=== PATIENT | female | born 1935 ===

== ENCOUNTER 2017-04-11 14:32 | Inpatient (IN) | payer MEDICARE, MEDICAID ==
[~2017-04-11] VITALS: Ht 152.4 cm; Wt 67.1 kg
[2017-04-11] MEDS ORDERED: NITROGLYCERIN OINT 1 GM PACKET TP ONE ×2 (14:45→15:08)
[2017-04-11] MEDS ORDERED: ASPIRIN 325 MG TABLET PO ONE (14:45)
[2017-04-11] MEDS ORDERED: Synthroid PO (14:46)
--- NOTE | 2017-04-11 14:51 | NUR ---
PT IS IN ROOM #1B. DR ROSA EVALUATED THE PT.
[2017-04-11 15:06] LABS: BASOPHILS % (AUTO) 0.4 % (0.0-2.0); EOSINOPHILS # (AUTO) 0.1 K/uL (0.0-0.7); EOSINOPHILS % (AUTO) 0.6 % (0.0-7.0); HEMATOCRIT 39.2 % (37-47); HEMOGLOBIN 13.1 G/DL (12.0-16.0); LYMPHOCYTES # (AUTO) 1.2 K/UL (0.8-4.8); LYMPHOCYTES % (AUTO) 12.6 % (20.5-51.5); MEAN CORPUSCULAR HEMOGLOBIN 30.2 UUG (27.0-31.0); MEAN CORPUSCULAR HGB CONC 33 g/dL (32.0-37.0); MEAN CORPUSCULAR VOLUME 90.3 FL (81.0-99.0); MONOCYTES # (AUTO) 0.9 K/UL (0.1-1.30); MONOCYTES % (AUTO) 8.8 % (0.0-11.0); NEUTROPHILS # (AUTO) 7.6 K/UL (1.8-8.9); NEUTROPHILS % (AUTO) 77.6 % (38.5-71.5); PLATELET COUNT (AUTO) 299 K/UL (150-450); RED BLOOD CELL COUNT(AUTO) 4.34 MIL/UL (4.2-5.4); WHITE BLOOD COUNT (AUTO) 9.8 K/UL (4.0-11.2)
[2017-04-11] MEDS ORDERED: ASPIRIN 325 MG TABLET ONE (15:07)
[2017-04-11 15:14] LABS: CARBON DIOXIDE 30 mmol/L (21-32); CHLORIDE 91 mmol/L (98-107); CREATININE 0.8 mg/dL (0.6-1.3); GLUCOSE 119 mg/dL (74-106); POTASSIUM 3.2 mmol/L (3.5-5.1); UREA NITROGEN, BLOOD 11 mg/dL (7-18)
[2017-04-11 15:19] LABS: ALANINE AMINOTRANSFERASE 15 U/L (14-59); ALKALINE PHOSPHATASE 79 U/L (50-136); ASPARTATE AMINOTRANSFERASE 14 U/L (15-37); BILIRUBIN,DIRECT 0.1 mg/dL (0.0-0.2); BILIRUBIN,TOTAL 0.5 mg/dL (0.2-1.0)
[2017-04-11] MEDS ORDERED: ASPI81TA31 PO (15:59)
--- NOTE | 2017-04-11 16:24 | NUR ---
REPORT WAS GIVEN TO MARINE SERVICES TECHNICIAN. PT WAS TRANSFERED TO TELEMETRY ROOM #228.
[2017-04-11 17:05] VITALS: BP 163/77
--- NOTE | 2017-04-11 17:05 | NUR ---
PATIENT ADMITTED INTO UNIT ER AT 1705 WITH ENRICO IN STABLE CONDITION. NO SIGNS OF DISTRESS. PATIENT ABLE TO AMBULATE WITHOUT ASSISTANCE FROM [facility] TO BED. A/OX4, COOPERATIVE. ADMISSION ASSESSMENTS COMPLETED. BED IN LOCKED, LOW POSITION. ID BAND PLACED. PATIENT DOES NOT COMPLAIN OF CHEST PAIN AT THIS TIME. SUPPLEMENTAL OXYGEN NEEDED. PT O2 SATURATION AT 98% RA. SAFETY AND COMFORT PROVIDED TO PATIENT.
[2017-04-11] MEDS ORDERED: MAGNESIUM HYDROXIDE 30 ML LIQUID UDC PO PRN (19:00)
[2017-04-11] MEDS ORDERED: MORPHINE SULFATE 2 MG/1 ML DISP.SYRIN IV PRN (19:00)
[2017-04-11] MEDS ORDERED: ACETAMINOPHEN 325 MG TABLET PO PRN (19:00)
[2017-04-11] MEDS ORDERED: ONDANSETRON 4 MG/2 ML VIAL IV PRN (19:00)
[2017-04-11] MEDS ORDERED: POTASSIUM CHLORIDE 20 MEQ in IV NS 1000 ML 1,000 ML IV PRN (19:00)
[2017-04-11 20:00] VITALS: BP 153/66
[2017-04-11] MEDS: DOCUSATE SODIUM 100 MG CAPSULE PO SCH (21:34)
[2017-04-11] MEDS: METOPROLOL TARTRATE 25 MG TABLET PO SCH (21:35)
[2017-04-12] VITALS: BP 146/72
[2017-04-12 04:00] VITALS: BP 152/76
[2017-04-12] MEDS: PANTOPRAZOLE SODIUM 40 MG TABLET.DR PO SCH (06:30)
[2017-04-12] MEDS: LEVOTHYROXINE SODIUM 50 MCG TABLET PO SCH (06:30)
[2017-04-12 06:48] LABS: BASOPHILS % (AUTO) 0.7 % (0.0-2.0); EOSINOPHILS # (AUTO) 0.1 K/uL (0.0-0.7); EOSINOPHILS % (AUTO) 2.1 % (0.0-7.0); HEMATOCRIT 38.1 % (37-47); HEMOGLOBIN 12.7 G/DL (12.0-16.0); LYMPHOCYTES # (AUTO) 1.3 K/UL (0.8-4.8); LYMPHOCYTES % (AUTO) 19.3 % (20.5-51.5); MEAN CORPUSCULAR HEMOGLOBIN 30.3 UUG (27.0-31.0); MEAN CORPUSCULAR HGB CONC 34 g/dL (32.0-37.0); MEAN CORPUSCULAR VOLUME 90.5 FL (81.0-99.0); MONOCYTES # (AUTO) 0.8 K/UL (0.1-1.30); MONOCYTES % (AUTO) 12.3 % (0.0-11.0); NEUTROPHILS # (AUTO) 4.6 K/UL (1.8-8.9); NEUTROPHILS % (AUTO) 65.6 % (38.5-71.5); PLATELET COUNT (AUTO) 281 K/UL (150-450); RED BLOOD CELL COUNT(AUTO) 4.21 MIL/UL (4.2-5.4); WHITE BLOOD COUNT (AUTO) 6.8 K/UL (4.0-11.2)
[2017-04-12 07:06] LABS: THYROID STIMULATING HORMONE 2.124 mIU/mL (0.358-3.740)
[2017-04-12 07:12] LABS: ALANINE AMINOTRANSFERASE 14 U/L (14-59); ALKALINE PHOSPHATASE 75 U/L (50-136); ASPARTATE AMINOTRANSFERASE 17 U/L (15-37); BILIRUBIN,TOTAL 0.7 mg/dL (0.2-1.0); CARBON DIOXIDE 29 mmol/L (21-32); CHLORIDE 96 mmol/L (98-107); CHOLESTEROL 163 mg/dL (<200); CREATININE 0.7 mg/dL (0.6-1.3); GLUCOSE 101 mg/dL (74-106); HDL CHOLESTEROL 83 mg/dL (40-60); PHOSPHOROUS 3.8 mg/dL (2.5-4.9); POTASSIUM 3.5 mmol/L (3.5-5.1); TOTAL PROTEIN, SERUM 6.9 g/dL (6.4-8.2); TRIGLYCERIDES 44 MG/DL (30-150); UREA NITROGEN, BLOOD 12 mg/dL (7-18)
[2017-04-12] MEDS: ASPIRIN 81 MG TAB.CHEW PO SCH (08:49)
[2017-04-12] MEDS: METOPROLOL TARTRATE 25 MG TABLET PO SCH ×2 (08:50→20:53)
--- NOTE | 2017-04-12 09:00 | NUR ---
BRAXTON ON HER RIGHT ANTICUBITAL IN CONSTANTLY BEEPING BECAUSE ITS POSITIONAL IV SITE CHANED TO HER LEFT WRIST WITH ONE ATTEMPT WITH GAUGE 20 ANGIO AND CONTINUED WITH IVF ORDERED.
--- NOTE | 2017-04-12 10:45 | NUR ---
DR SIMPSON HERE NOTIFIED HIM THAT THE PATIENTS DAUGHTER WILL CALLED AND STATED THAT HER MOTHERS MAIN ISSUE IS NAUSEA AND DIZZINESS BUT PATIENT TOLERATED HER BREAKFAST AND DENIES ANY NAUSEA OR BEING DIZZY AT THIS TIME.DR SIMPSON NOTIFIED AND HE STATED WILL SEE PATIENT.
[2017-04-12] MEDS ORDERED: POTASSIUM CHLORIDE 10 MEQ CAPSULE.SA PO ONE (11:00)
[2017-04-12 11:06] VITALS: BP 134/76
[2017-04-12 15:14] VITALS: BP 132/69
--- NOTE | 2017-04-12 17:10 | NUR ---
PATIENT SEEN IN THE HALLWAY DRAGING HER IV POLE ASSISTED HER BACK INTO THE ROOM MADE COMFORTABLE AND PATIENT ADVISED NOT TO WALK WITHOUT ASSISTANCE SHE IS PRONE TO FALL EVEN STATED THAT THIS ROOM THAT SHE IS IN NOW IS NOT HER ROOM TOLD ME THAT SHE HAS BEEN HERE FOR 5 DAYS AND WAS IN A DIFFERENT ROOM.REMINDED HER THAT SHE WAS JUST ADMITTED BUT SHE REFUSED AND WANTED ME TO REMOVE HER HEPLOCK.DISCONNECTED HER AT THIS TIME AND TOLD HER TO LEAVE THE HEPLOCK IN FOR NOW.WILL CONTINUE TO OBSERVE.
--- NOTE | 2017-04-12 19:30 | NUR ---
RECEIVED SHIFT REPORT FROM PREVIOUS SHIFT NURSE. PATIENT IS CONFUSED, PACING AROUND INSIDE ROOM AND AT TIMES, WANDERING OUTSIDE OF ROOM. PATIENT VERBALIZING STORIES THAT ARE NOT UNDERSTOOD. REORIENTATION PROVIDED AND WILL CONTINUE TO BE PROVIDED THROUGHOUT SHIFT. SAFETY AND COMFORT WILL ALSO BE IMPLEMENTED THROUGHOUT SHIFT. PATIENT IS IN STABLE CONDITION, NO SIGNS/ SYMTPOMS OF DISTRESS.
[2017-04-12 20:00] VITALS: BP 140/56
[2017-04-12 20:09] LABS: *BILIRUBIN,URIN NEGATIVE (NEGATIVE); *BLOOD, URINE 3+ (NEGATIVE); *CLARITY,URINE CLOUDY (CLEAR); *COLOR,URINE YELLOW (YELLOW); *KETONES,URINE NEGATIVE (NEGATIVE); *PROTEIN,URINE NEGATIVE (NEGATIVE); *UROBILINOGEN,URINE 0.2 E.U./dl (NORMAL); LEUKOCYTE ESTERASE ,URINE 2+ (NEGATIVE); NITRITE, URINE POSITIVE (NEGATIVE); UGLUCOSE NEGATIVE (NEGATIVE)
[2017-04-12 20:17] LABS: BACTERIA,URINE MANY /HPF (NONE SEEN); SQUAMOUS EPITHELIAL CELL,UR FEW /HPF (NONE SEEN); WBC,URINE 20-50 /HPF (0-3)
[2017-04-12] MEDS: DOCUSATE SODIUM 100 MG CAPSULE PO SCH (20:53)
[2017-04-13] VITALS: BP 135/73
[2017-04-13 04:00] VITALS: BP 138/62
--- NOTE | 2017-04-13 06:16 | NUR ---
PATIENT SLEPT THROUGHOUT MOST OF THE NIGHT. REORIENTATION PROVIDED TO PATIENT THROUGHOUT SHIFT. PATIENT APPEARS TO BE SLIGHTLY LESS CONFUSED AT THIS TIME COMPARED TO BEGINNING OF SHIFT. REORIENTATION IMPORTANCE WILL BE ENDORSED TO NEXT SHIFT. PATIENT IS IN STABLE CONDITION WITH NO SIGNS/SYMPTOMS OF DISTRESS. SAFETY AND COMFORT PROVIDED TO PATIENT.
[2017-04-13] MEDS: PANTOPRAZOLE SODIUM 40 MG TABLET.DR PO SCH (06:23)
[2017-04-13] MEDS: LEVOTHYROXINE SODIUM 50 MCG TABLET PO SCH (06:23)
[2017-04-13 06:41] LABS: CARBON DIOXIDE 27 mmol/L (21-32); CHLORIDE 101 mmol/L (98-107); CREATININE 0.9 mg/dL (0.6-1.3); GLUCOSE 122 mg/dL (74-106); PHOSPHOROUS 3.4 mg/dL (2.5-4.9); POTASSIUM 4.3 mmol/L (3.5-5.1); UREA NITROGEN, BLOOD 14 mg/dL (7-18)
[2017-04-13 06:44] LABS: BASOPHILS % (AUTO) 0.5 % (0.0-2.0); EOSINOPHILS # (AUTO) 0.1 K/uL (0.0-0.7); HEMATOCRIT 36.9 % (37-47); HEMOGLOBIN 12.6 G/DL (12.0-16.0); LYMPHOCYTES # (AUTO) 1.1 K/UL (0.8-4.8); LYMPHOCYTES % (AUTO) 14.7 % (20.5-51.5); MEAN CORPUSCULAR HEMOGLOBIN 30.7 UUG (27.0-31.0); MEAN CORPUSCULAR HGB CONC 34 g/dL (32.0-37.0); MONOCYTES # (AUTO) 1.2 K/UL (0.1-1.30); MONOCYTES % (AUTO) 15.1 % (0.0-11.0); NEUTROPHILS # (AUTO) 5.3 K/UL (1.8-8.9); NEUTROPHILS % (AUTO) 68.7 % (38.5-71.5); PLATELET COUNT (AUTO) 256 K/UL (150-450); WHITE BLOOD COUNT (AUTO) 7.7 K/UL (4.0-11.2)
--- NOTE | 2017-04-13 08:00 | NUR ---
Pt ambulates well throughout the hallway with very good balance - no iissue with balance. Pt is in no acute distress. SNR.
[2017-04-13 08:13] LABS: BAND % (MANUAL) 1 % (0-10); EOSINOPHILS % (MANUAL) 1 % (0-8); LYMPHOCYTES % (MANUAL) 17 % (20-40); MONOCYTES % (MANUAL) 14 % (2-10); NEUTROPHILS % (MANUAL) 67 % (42-75)
[2017-04-13] MEDS: ASPIRIN 81 MG TAB.CHEW PO SCH (08:45)
[2017-04-13] MEDS: METOPROLOL TARTRATE 25 MG TABLET PO SCH (08:46)
[2017-04-13] MEDS ORDERED: CEFTRIAXONE 1 G in IV DEXTROSE 5% 50 ML IV SCH (11:00)
[2017-04-13 11:17] VITALS: BP 113/58
[2017-04-13] MEDS ORDERED: LOSA50TA21 PO (12:17)
[2017-04-13] MEDS ORDERED: FAMO-132 PO (12:17)
[2017-04-13] MEDS ORDERED: SULF1TAB48 PO (12:17)
--- NOTE | 2017-04-13 13:30 | NUR ---
Gave pt's own losartan gotten from her purse but was not sent down to pharmacy due to pt was going to be d/c home. Daughter took losartan.
--- NOTE | 2017-04-13 13:45 | NUR ---
Discharge instructions given to nula daughter and patient. Verbalized understanding. Pt is to f/u with their PMD within 1 week . Pt wants to f/u with vaccines with her PMD. Vaccine refused. Zaida and naseem was in a hurry to leave hospital and refused pharmacy education "we will get information with [facility]" Pt is in no acute distress. IV d/c Pt is in no acute distress.
== END 2017-04-13 14:10 | disposition home health service (06) | DRG 206 ==
LOC: ER 14:32 → TELE 16:51
PROVIDERS: ADMIT Internal Medicine; ATTEND Internal Medicine
DX: M94.0 Chondrocostal junction syndrome [Tietze] (principal); N39.0 Urinary tract infection, site not specified; E87.1 Hypo-osmolality and hyponatremia; B96.89 Other specified bacterial agents as the cause of diseases classified elsewhere; R42 Dizziness and giddiness; A08.4 Viral intestinal infection, unspecified; E03.9 Hypothyroidism, unspecified; T37.8X5A Adverse effect of other specified systemic anti-infectives and antiparasitics, initial encounter; Y92.89 Other specified places as the place of occurrence of the external cause; Z90.710 Acquired absence of both cervix and uterus; Z87.891 Personal history of nicotine dependence; K59.00 Constipation, unspecified; E87.6 Hypokalemia; Z96.611 Presence of right artificial shoulder joint; I70.0 Atherosclerosis of aorta; I49.1 Atrial premature depolarization; R11.0 Nausea; I10 Essential (primary) hypertension
CPT/HCPCS: 36415; 70030-TC; 70450; 71010; 83735; 84100; 84443; 85025; 85730; 87077; 87086; 93005; 93307; A4663; J0696; J3480; J7030; J7060